=== PATIENT | male | born 1960 | race Caucasian/White ===

== ENCOUNTER 2018-08-17 11:34 | Emergency (ER) | payer OTHER ==
[2018-08-17 11:50] VITALS: BP 107/77; PULSE 67; TEMP 97.8; BMI 21.8
[2018-08-17] MEDS ORDERED: TETRACAINE 0.5% HCL 0.6ML DROPPER.BOTTLE OS ONE (12:13)
[2018-08-17] MEDS ORDERED: FLUORESCEIN NA 1 EA STRIP OS ONE (12:13)
--- NOTE | 2018-08-17 12:13 | PDOC ---
History of Present Illness - General Chief Complaint: Injury Stated Complaint: PT WAS POKED IN LEFT EYE WITH WIRE Time Seen by Provider: 08/17/18 11:49 - History of Present Illness Initial Comments: 08/17/18 13:45 Chief complaint: Left eye injury History of present illness: Patient was at work and was struck in the left eye by a protruding object. He was struck in the left lateral corner of the left eye. There is no pain or blurred vision, but there is redness of the conjunctiva Review of systems: Negative except as above Past medical history: Healthy male, no active medical or surgical problems Social/family history reviewed and noncontributory Physical exam: Alert and oriented well-developed well-nourished no acute distress cheerful and cooperative Afebrile, vital signs normal Visual acuity is intact, with vision actually better in the affected eye. See note Left eye: There is mild erythema of the lateral conjunctiva. There is no laceration or other injury to the eye or the lids. Pupil is round and reactive to light and accommodation. Anterior chambers clear. EOMs are full without diplopia. Visual de [place] intact to confrontation. Corneas clear upon examination with floor scene. Impression: Minor injury of the conjunctiva. 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 Fully ambulatory and in no pain or other distress upon discharge to follow-up as directed Past History - Past Medical History Allergies/Adverse Reactions: Allergies Allergy/AdvReac Type Severity Reaction Status Date / Time No Known Allergies Allergy Unverified 08/17/18 11:36 Home Medications: Ambulatory Orders Gentamicin 0.3% Eye Drops - 1 drop OS Q2H #1 dropsbtl 08/17/18 Cardiac Disorders: Yes (IRREGULAR HEART BEAT) COPD: No Diabetes: Yes - Suicide/Smoking/Psychosocial Hx Smoking History: Never smoked Information on smoking cessation initiated: No Hx Alcohol Use: No Drug/Substance Use Hx: No *Physical Exam - Vital Signs Last Vital Signs Temp Pulse Resp BP Pulse Ox 97.8 F 67 18 107/77 98 08/17/18 11:36 08/17/18 11:36 08/17/18 11:36 08/17/18 11:36 08/17/18 11:36 Moderate Sedation - Procedure Monitoring Vital Signs: Procedure Monitoring Vital Signs Temperature 97.8 F 08/17/18 11:36 Pulse Rate 67 08/17/18 11:36 Respiratory Rate 18 08/17/18 11:36 Blood Pressure 107/77 08/17/18 11:36 O2 Sat by Pulse Oximetry (%) 98 08/17/18 11:36 *DC/Admit/Observation/Transfer Diagnosis at time of Disposition: Traumatic conjunctivitis - Discharge Dispostion Disposition: HOME Condition at time of disposition: Stable Decision to Admit order: No - Prescriptions Prescriptions: Gentamicin 0.3% Eye Drops - 1 drop OS Q2H #1 dropsbtl - Referrals Referrals: Clarke Blum MD [Staff Physician] - 24 hours - Patient Instructions Additional Instructions: Warm compresses and antibiotic eyedrops as directed If there is pain or any problem with vision, recheck cam specialist 24 hours as directed. - Post Discharge Activity Forms/Work/School Notes: Back to Work
[2018-08-17] MEDS ORDERED: FLUORESCEIN NA 1 EA STRIP ONE (12:15)
[2018-08-17] MEDS ORDERED: TETRACAINE 0.5% OPHTH SOLN 2 ML BOTTLE ONE (12:15)
== END 2018-08-17 12:36 | disposition home or self-care (01) ==
LOC: FER 11:34 → EDBD 11:34 → FER 12:36
DX: H10.89 Other conjunctivitis (principal); E11.9 Type 2 diabetes mellitus without complications; I49.9 Cardiac arrhythmia, unspecified
CPT/HCPCS: 99282-25